=== PATIENT | male | born 1950 | race Caucasian/White ===

== ENCOUNTER 2019-01-20 10:19 | Inpatient (IN) ==
[2019-01-20] MEDS ORDERED: DUONEB (A & A) INH ONE (10:37)
[2019-01-20] MEDS ORDERED: LASIX IV ONE ×2 (10:38→14:03)
--- NOTE | 2019-01-20 10:43 | PROVIDER DOCUMENTATION ---
HPI-Respiratory General - General Chief Complaint: Shortness of Breath Stated Complaint: SOB Time Seen by Provider: 01/20/19 10:30 Source: patient Allergies/Adverse Reactions: Patient Allergies Allergy/AdvReac Type Severity Reaction Status Date / Time No Known Allergies Allergy Verified 01/20/19 10:56 Home Medications: Home Medication List Medication Instructions Recorded Confirmed Last Taken Type Glipizide [Glipizide Xl] 10 mg PO QHS 12/20/17 01/20/19 01/19/19 History ATORVAstatin [Lipitor] 80 mg PO HS tablet 12/27/17 01/20/19 01/19/19 Rx Clopidogrel Bisulfate [Plavix] 75 mg PO QHS 10/03/18 01/20/19 01/19/19 History Insulin Detemir [Levemir] 25 units SQ QAM 10/03/18 01/20/19 01/19/19 History Furosemide [Lasix] 20 mg PO DAILY #90 tab 10/06/18 01/20/19 01/19/19 Rx Apixaban [Eliquis] 5 mg PO BID 12/26/18 01/20/19 01/19/19 History Gabapentin 100 mg PO BID 12/26/18 01/20/19 01/19/19 History Omeprazole 40 mg PO DAILY 12/26/18 01/20/19 01/19/19 History - History of Present Illness-Resp Nature of Presenting Problem: 68 yr old M, with PMHx significant for CAD s/p stent placement in June 2018, DM type 2, hyperlipidemia, presents with a 24 hr hx of worsening SOB, as well as a one week hx of worsening lightheadedness. The pt states that he has been feeling severely lightheaded for the past week, and has had worsening exertional dyspnea. He also reports worsening generalized weakness. He denies chest pain or pressure. He actually initially reported to his PCP's office this morning, but because of his symptoms and O2 sat of 79% on room air, he was transported via EMS to the ED. Onset/Duration: reports: 24 hours ago Timing: reports: still present Context: denies: recent foreign travel Cough Quality/Degree: reports: dry cough Current Respiratory Medication Therapy: Initiated none Similar Symptoms Previously?: No Review of Systems - Adult - REVIEW OF SYSTEMS - ADULT Constitutional: reports: no symptoms reported Eyes: reports: no symptoms reported Ears, Nose, Mouth & Throat: reports: no symptoms reported Cardiovascular: reports: no symptoms reported Respiratory: reports: cough, dyspnea on exertion, shortness of breath Gastrointestinal: reports: no symptoms reported Genitourinary: reports: no symptoms reported Musculoskeletal: reports: no symptoms reported Integumentary: reports: no symptoms reported Neurological: reports: no symptoms reported Psychiatric: reports: no symptoms reported Past History - Adult - PAST MEDICAL HISTORY-ADULT Review of Records: reports: Old Records Reviewed, Nursing Assessment Review Major Childhood Illnesses: reports: denies history Cardiovascular: reports: blood clots, HTN, heart valve problem, hyperlipidemia, [place], other (cardiomegaly) Respiratory: reports: denies history Gastrointestinal: reports: denies history Obstetrical/Gynecological: reports: denies history Genitourinary: reports: denies history Musculoskeletal: reports: denies history Neurological: reports: denies history Endocrine/Immune: reports: Diabetes Other Conditions: reports: denies history - PRIOR SURGERIES/PROCEDURES Surgical/Procedure History: reports: cardiac stent, hernia repair, orthopedic (extremity) (finger amputation), other (blood clot removed) - IMMUNIZATION STATUS Childhood Immunizations: See Nurse Assessment Flu Vaccine: See Nurse Assessment - FAMILY HISTORY Family History: reviewed, not pertinent - SOCIAL HISTORY Smoking: greater than 1 pack/day Physical Exam-General - CONSTITUTIONAL General Appearance: alert, mild distress - EYES Eyes: PERRL/EOMI - HEAD, EARS, NOSE, MOUTH & THROAT HENMT: normocephalic/atraumatic, moist mucous membranes - NECK Neck: full range of motion, supple, other (no jvd noted) - RESPIRATORY Respiratory: chest non-tender, accessory muscle use, crackles, wheezing - CARDIOVASCULAR Cardiovascular: tachycardia - GASTROINTESTINAL (ABDOMEN) Abdominal Exam: normal bowel sounds, non tender, soft - MUSCULOSKELETAL Extremity: pedal edema - SKIN Integumentary: warm/dry - NEUROLOGIC Neurologic: no motor/sensory deficits - PSYCHIATRIC Psych/Mental Status: normal mood/affect, oriented x 3 - HEART Score HEART Score: History: Moderately Suspicious HEART Score: ECG: Normal HEART Score: Age: > or = 65 Years HEART Score: Risk Factors for Atherosclerotic Disease: > or = 3 Risk Factors or History of Atherosclerotic Disease HEART Score: Troponin: < or = Normal Limit Total HEART Score:: 5 Progress - PLAN OF CARE/RESULTS Progress/Plan/Lab Results: Vital Signs - 8 hr 01/20/19 10:25 01/20/19 10:29 01/20/19 10:30 Temperature 98.1 F Pulse Rate 103 H Respiratory Rate 21 Blood Pressure 141/80 141/80 136/65 O2 Sat by Pulse Oximetry 100 01/20/19 10:46 01/20/19 10:51 01/20/19 11:00 Temperature Pulse Rate 100 H Respiratory Rate 18 Blood Pressure O2 Sat by Pulse Oximetry 100 100 94 L 01/20/19 11:01 01/20/19 11:30 01/20/19 12:00 Temperature Pulse Rate Respiratory Rate Blood Pressure 119/71 143/79 O2 Sat by Pulse Oximetry 94 L 100 100 01/20/19 12:30 01/20/19 12:49 01/20/19 12:53 Temperature Pulse Rate 98 H Respiratory Rate Blood Pressure 159/75 159/75 159/75 O2 Sat by Pulse Oximetry 100 92 L 01/20/19 13:00 01/20/19 13:19 01/20/19 13:30 Temperature Pulse Rate 100 H 100 H 106 H Respiratory Rate 22 20 21 Blood Pressure 147/82 147/82 117/83 O2 Sat by Pulse Oximetry 97 93 L 97 01/20/19 13:39 01/20/19 14:00 Temperature Pulse Rate 100 H Respiratory Rate 21 20 Blood Pressure 151/68 130/84 O2 Sat by Pulse Oximetry 100 01/20/19 12:43 Influenza Screen - Final Nasopharyngeal Laboratory Results - last 24 hr 01/20/19 01/20/19 01/20/19 10:58 11:37 11:37 WBC 15.01 H RBC 3.18 L Hgb 6.4 L Hct 23.5 L MCV 73.9 L MCH 20.1 L MCHC 27.2 L RDW Std Deviation 19.0 H Plt Count 478 H MPV 11.4 H Immature Gran % (Auto) 0.3 Neut % (Auto) 83.2 H Lymph % (Auto) 9.9 L [place] % (Auto) 4.8 Eos % (Auto) 0.9 Baso % (Auto) 0.9 H Immature Gran # (Auto) 0.05 H Neut # (Auto) 12.49 H Lymph # (Auto) 1.48 [place] # (Auto) 0.72 H Eos # (Auto) 0.13 Baso # (Auto) 0.14 PT INR PTT (Actin FS) Specimen Type ARTERIAL Sample Site R RADIAL pH 7.45 pCO2 31 L pO2 77 HCO3 23.1 Base Excess -2.3 Oxyhemoglobin 93.3 L ABG O2 Sat (Calculated) 8.0 L ABG O2 Saturation 94.3 L ABG Carboxyhemoglobin 1.10 ABG Methemoglobin 0.0 Norm Test YES A-a O2 Difference 34.0 Total Hemoglobin 6.0 L Lactate 1.10 Blood Gas Modality ROOM AIR FiO2 % 21.0 Sodium Potassium Chloride Carbon Dioxide Anion Gap BUN Creatinine Estimated GFR/1.73 m2 BUN/Creatinine Ratio Glucose Calculated Osmolality Calcium Iron TIBC % Saturation Unsat Iron Binding Ferritin Total Bilirubin AST ALT Alkaline Phosphatase Creatine Kinase Troponin T Fel-N-Jcrwqhidcci Pept 1763 H Total Protein Albumin Globulin Albumin/Globulin Ratio Plasma Lactate Vitamin B12 Blood Type Antibody Screen Crossmatch 01/20/19 01/20/19 01/20/19 11:37 11:37 11:37 WBC RBC Hgb Hct MCV MCH MCHC RDW Std Deviation Plt Count MPV Immature Gran % (Auto) Neut % (Auto) Lymph % (Auto) [place] % (Auto) Eos % (Auto) Baso % (Auto) Immature Gran # (Auto) Neut # (Auto) Lymph # (Auto) [place] # (Auto) Eos # (Auto) Baso # (Auto) PT 14.1 INR 1.07 PTT (Actin FS) 28.6 Specimen Type Sample Site pH pCO2 pO2 HCO3 Base Excess Oxyhemoglobin ABG O2 Sat (Calculated) ABG O2 Saturation ABG Carboxyhemoglobin ABG Methemoglobin Norm Test A-a O2 Difference Total Hemoglobin Lactate Blood Gas Modality FiO2 % Sodium 133 L Potassium 4.5 Chloride 97 L Carbon Dioxide 18 L Anion Gap 18 BUN 12 Creatinine 1.6 H Estimated GFR/1.73 m2 43 BUN/Creatinine Ratio 8 Glucose 277 H Calculated Osmolality 276 Calcium 8.8 Iron TIBC % Saturation Unsat Iron Binding Ferritin Total Bilirubin 0.34 AST 26 ALT 11 Alkaline Phosphatase 159 H Creatine Kinase 162 Troponin T 0.049 Oqj-F-Mzexglbrcav Pept Total Protein 7.3 Albumin 4.2 Globulin 3.1 Albumin/Globulin Ratio 1.4 Plasma Lactate Vitamin B12 Blood Type Antibody Screen Crossmatch 01/20/19 01/20/19 01/20/19 11:37 11:37 12:35 WBC RBC Hgb Hct MCV MCH MCHC RDW Std Deviation Plt Count MPV Immature Gran % (Auto) Neut % (Auto) Lymph % (Auto) [place] % (Auto) Eos % (Auto) Baso % (Auto) Immature Gran # (Auto) Neut # (Auto) Lymph # (Auto) [place] # (Auto) Eos # (Auto) Baso # (Auto) PT INR PTT (Actin FS) Specimen Type Sample Site pH pCO2 pO2 HCO3 Base Excess Oxyhemoglobin ABG O2 Sat (Calculated) ABG O2 Saturation ABG Carboxyhemoglobin ABG Methemoglobin Norm Test A-a O2 Difference Total Hemoglobin Lactate Blood Gas Modality FiO2 % Sodium Potassium Chloride Carbon Dioxide Anion Gap BUN Creatinine Estimated GFR/1.73 m2 BUN/Creatinine Ratio Glucose Calculated Osmolality Calcium Iron TIBC % Saturation Unsat Iron Binding Ferritin 24 L Total Bilirubin AST ALT Alkaline Phosphatase Creatine Kinase Troponin T Fqw-T-Xnhyascptxy Pept Total Protein Albumin Globulin Albumin/Globulin Ratio Plasma Lactate 3.0 H Vitamin B12 860 Blood Type B POSITIVE Antibody Screen NEGATIVE Crossmatch See Detail 01/20/19 13:58 WBC RBC Hgb Hct MCV MCH MCHC RDW Std Deviation Plt Count MPV Immature Gran % (Auto) Neut % (Auto) Lymph % (Auto) [place] % (Auto) Eos % (Auto) Baso % (Auto) Immature Gran # (Auto) Neut # (Auto) Lymph # (Auto) [place] # (Auto) Eos # (Auto) Baso # (Auto) PT INR PTT (Actin FS) Specimen Type Sample Site pH pCO2 pO2 HCO3 Base Excess Oxyhemoglobin ABG O2 Sat (Calculated) ABG O2 Saturation ABG Carboxyhemoglobin ABG Methemoglobin Norm Test A-a O2 Difference Total Hemoglobin Lactate Blood Gas Modality FiO2 % Sodium Potassium Chloride Carbon Dioxide Anion Gap BUN Creatinine Estimated GFR/1.73 m2 BUN/Creatinine Ratio Glucose Calculated Osmolality Calcium Iron 13 L TIBC 456 % Saturation 3 Unsat Iron Binding 443 H Ferritin Total Bilirubin AST ALT Alkaline Phosphatase Creatine Kinase Troponin T Xix-G-Sgduqkqknio Pept Total Protein Albumin Globulin Albumin/Globulin Ratio Plasma Lactate Vitamin B12 Blood Type Antibody Screen Crossmatch Orders Category Date Time Status Admit - [facility] Routine AdmDCTranf 01/20/19 13:56 Active Activity - Up with Assistance ORDERED Care 01/20/19 13:56 Active Apply Mechanical Device [QM] ORDERED Care 01/20/19 14:20 Active Cardiac Monitoring DIRECTED Care 01/20/19 11:56 Completed FSBS/Accucheck Result AC + HS Care 01/20/19 13:56 Active IV Insertion ORDERED Care 01/20/19 11:56 Completed Intake and Output-Strict ORDERED Care 01/20/19 14:20 Active Notify MD of + Sepsis Screen NOW Care 01/20/19 11:56 Completed Notify Physician As Ordered Care 01/20/19 11:56 Active Nursing- Assist w/ IS as order ORDERED Care 01/20/19 14:20 Active Nursing- MD Consult Request ROUTINE Care 01/20/19 13:56 Active Nursing- MD Consult Request ROUTINE Care 01/20/19 14:04 Active Transfuse .Give-Transfuse Care 01/20/19 13:59 Active Vital Signs Order Q 4-HR ASSESS Care 01/20/19 14:20 Completed Z-Document. for Tele Applied ORDERED Care 01/20/19 14:20 Completed MD [Physician/Provider Consults] Routine Cons 01/20/19 14:03 Ordered Physician/Provider Consults Routine Cons 01/20/19 13:56 Ordered Social Service Consult Routine Cons 01/20/19 14:20 Active Clear Liquid Diet Diet 01/20/19 13:56 Active NPO Diet 01/21/19 00:01 Active CHEST-2 VIEWS [RAD] Stat Exams 01/20/19 10:38 Completed ABG [RESP] Routine Lab 01/20/19 10:58 Completed BLOOD CULTURE [BLDCUL] Stat Lab 01/20/19 11:37 Results CBC WITH DIFF [HEME] Q24H Lab 01/21/19 06:00 Ordered CBC WITH DIFF [HEME] Q24H Lab 01/22/19 06:00 Ordered CBC WITH DIFF [HEME] Q24H Lab 01/23/19 06:00 Ordered CBC WITH DIFF [HEME] Q24H Lab 01/24/19 06:00 Ordered CBC WITH DIFF [HEME] Q24H Lab 01/25/19 06:00 Ordered CBC WITH DIFF [HEME] Q24H Lab 01/26/19 06:00 Ordered CBC WITH DIFF [HEME] Q24H Lab 01/27/19 06:00 Ordered CBC WITH ELECTRONIC DIFF [HEME] Stat Lab 01/20/19 11:37 Completed CK PROFILE [SP CHEM] Stat Lab 01/20/19 11:37 Completed COMPREHENSIVE METABOLIC PANEL [CHEM] Q24H Lab 01/21/19 06:00 Ordered COMPREHENSIVE METABOLIC PANEL [CHEM] Q24 Lab 01/22/19 06:00 Ordered COMPREHENSIVE METABOLIC PANEL [CHEM] Q24 Lab 01/23/19 06:00 Ordered COMPREHENSIVE METABOLIC PANEL [CHEM] Q24 Lab 01/24/19 06:00 Ordered COMPREHENSIVE METABOLIC PANEL [CHEM] Q24 Lab 01/25/19 06:00 Ordered COMPREHENSIVE METABOLIC PANEL [CHEM] Q24 Lab 01/26/19 06:00 Ordered COMPREHENSIVE METABOLIC PANEL [CHEM] Q24 Lab 01/27/19 06:00 Ordered COMPREHENSIVE METABOLIC PANEL [CHEM] Stat Lab 01/20/19 11:37 Completed FERRITIN Stat Lab 01/20/19 11:37 Completed FOLATE Stat Lab 01/20/19 13:58 Received Flu Swab [INFLUENZA SCREEN A/B] Stat Lab 01/20/19 12:43 Completed LACTATE, PLASMA [CHEM] Lab 01/20/19 15:00 Ordered LACTATE, PLASMA [CHEM] Lab 01/20/19 18:00 Ordered LACTATE, PLASMA [CHEM] Q3 Lab 01/20/19 11:37 Completed LRPC (RED CELLS) [BBK] Stat Lab 01/20/19 12:35 Results MAGNESIUM [CHEM] Q24 Lab 01/21/19 06:00 Ordered MAGNESIUM [CHEM] Q24 Lab 01/22/19 06:00 Ordered MAGNESIUM [CHEM] Q24 Lab 01/23/19 06:00 Ordered MAGNESIUM [CHEM] Q24 Lab 01/24/19 06:00 Ordered MAGNESIUM [CHEM] Q24 Lab 01/25/19 06:00 Ordered MAGNESIUM [CHEM] Q24 Lab 01/26/19 06:00 Ordered MAGNESIUM [CHEM] Q24 Lab 01/27/19 06:00 Ordered PROTIME WITH INR [COAG] Routine Lab 01/21/19 06:00 Ordered PROTIME WITH INR [COAG] Stat Lab 01/20/19 11:37 Completed PTT [COAG] Routine Lab 01/21/19 06:00 Ordered PTT [COAG] Stat Lab 01/20/19 11:37 Completed TROPONIN T Stat Lab 01/20/19 11:37 Completed TYPE & SCREEN [BBK] Stat Lab 01/20/19 12:35 Results UIBC W TOTAL IRON [CHEM] Stat Lab 01/20/19 13:58 Completed URINALYSIS W/POSS RFLX CULT [URINALYSIS] Stat Lab 01/20/19 11:56 Uncollected VITAMIN B12 Stat Lab 01/20/19 11:37 Completed pro-bnp [PRO B-NATRIURETIC PEPTIDE] Stat Lab 01/20/19 11:37 Completed ATORVAstatin [Lipitor] Med 01/20/19 21:00 Active 80 mg PO HS Acetaminophen [Tylenol] Med 01/20/19 13:56 Active 650 mg PO Q6H PRN PRN Albuterol 2.5MG/Ipratrop 0.5MG [Duoneb (A & A)] Med 01/20/19 10:37 Discontinued 3 ml INH NOW ONE Budesonide [Pulmicort] Med 01/20/19 19:30 Active 0.5 mg INH RTBID CefTRIAXONE [Rocephin] 1 gm Med 01/20/19 12:40 Discontinued 0.9% Sodium Chloride Inj [Ns] 50 ml IV NOW CefTRIAXONE [Rocephin] 1 gm Med 01/21/19 09:00 Active 0.9% Sodium Chloride Inj [Ns] 50 ml IV Q24H Furosemide [Lasix] Med 01/20/19 10:38 Discontinued 20 mg IV NOW ONE Furosemide [Lasix] Med 01/20/19 14:03 Discontinued 20 mg IV NOW ONE Furosemide [Lasix] Med 01/21/19 09:00 Active 40 mg IV DAILY Gabapentin [Neurontin] Med 01/20/19 21:00 Active 100 mg PO BID Insulin Detemir [Levemir] Med 01/21/19 09:00 Active 25 unit SUBQ QAM Insulin Human Regular [Humulin R] Med 01/20/19 16:00 Active See Protocol SUBQ 0700,1100,1600,2100 Ipratropium [place] Neb [Atrovent Neb] Med 01/20/19 15:30 Active 0.5 mg INH RTQ4H Levalbuterol Neb [Xopenex Neb] Med 01/20/19 15:30 Active 1.25 mg INH RTQ4H Ondansetron [Zofran] Med 01/20/19 13:56 Active 4 mg IV Q4H PRN PRN Pantoprazole [Protonix] Med 01/20/19 12:50 Discontinued 40 mg IV NOW ONE Sodium Chloride 0.9% Med 01/20/19 12:50 Discontinued 10 ml INJ NOW ONE Sodium Chloride 0.9% Neb [Ns Neb] Med 01/20/19 14:00 Active 5 ml INH DIRECTED Aerosol Treatments Routine Oth 01/20/19 10:38 Completed Aerosol Treatments Routine Oth 01/20/19 13:56 Active Aerosol Treatments Stat Oth 01/20/19 10:38 Completed Incentive Spirometer Routine Oth 01/20/19 14:20 Active Oxygen Device Stat Ot 01/20/19 11:56 Active Pulse Oximetry Routine Ot 01/20/19 14:20 Active Telemetry [OM.EQ] Routine Oth 01/20/19 14:20 Active EKG [EKG] Routine Ther 01/21/19 08:00 Ordered EKG [EKG] Stat Ther 01/20/19 10:38 Draft Transfer/Admit Order [TRANSFER] Routine Transfer 01/20/19 13:50 Completed Pt has H/H of 6.4/23.4; possibly related to recent GI issues; he very succinctly denies any black or tarry stools or hematemesis/hemoptysis; he was not inte rested in my offer of rectal exam. Spoke with hospitalist [facility] [employer] who will speak to hospitalist for admission. Result Diagrams: 01/20/19 11:37 01/20/19 11:37 - EKG 1 Time of EKG reading by physician:: 11:33 EKG Read and Signed by:: Parth Bhatt EKG Interpretation (*Must complete 3 of following elements*): Abnormal Rate: 103 Rhythm: sinus tachycardia with PVCs [place]: left QRS: poor R wave progression [place] Interval: normal ST Wave: non-specific ST changes Prior EKG Comparison: unchanged from prior Comments: inferior and anteroseptal infarct, age undetermined - XRAY 1 XRAY Study: Chest Impression: See EMR Report XRAY Interpretation: pulmonary edema - CONSULTS/PCP/HOSPITALIST Notification #1 *Consult/PCP/Hospitalist*: Belkys Ricketts Time Discussed: 12:51 Consult Disposition: Admit Departure - Departure Date of Disposition Decision: 01/20/19 Time of Disposition Decision: 15:13 DIAGNOSIS: Anemia, Acute exacerbation of congestive heart failure, SOB (shortness of breath) Disposition: ADMITTED INPATIENT 09 Certified Medical Emergency: Emergent Condition: Fair - Critical Care Note This patient required my direct & personal management of CC.: No Attestation - Physician/ FELI Attestation Patient care was provided by Advanced Practice Provider:: No The physician spent face to face time with patient:: Yes Advanced Practice Provider documentation review:: Supervising physician onsite and consulted in the evaluation and care of this patient. The physician did have a face to face encounter with the patient.
[2019-01-20 11:08] LABS: ALLEN TEST YES; BE -2.3 mmoll (-3.0-3.0); BLOOD TYPE ARTERIAL; HCO3-(ACT) 23.1 mmoll (20.0-26.0); O2HB 93.3 % (95.0-99.0); PCO2(98.6) 31 mmHg (35-45); PO2(98.6) 77 mmHg (60-100); SAMPLE BLOOD; SAO2 94.3 % (95.0-100.0); pH(98.6) 7.45 (7.35-7.45)
[2019-01-20 11:09] LABS: MODALITY ROOM AIR
--- NOTE | 2019-01-20 11:20 | Diag Imaging Result Doc PS360 ---
EXAM: CHEST-2 VIEWS HISTORY: SOB TECHNIQUE: Two views COMPARISON: 10/03/2018 FINDINGS: Increased AP diameter to the chest. Heart is mildly enlarged and there is pulmonary edema. Trace pleural fluid. No consolidation. IMPRESSION: Congestive failure. Electronically signed by Elvis Sweeney 01/20/2019 11:18 AM
--- NOTE | 2019-01-20 11:25 | EKG Report ---
Test Performed on : 01/20/2019 11:33:15 AM Test Reason : SOB Blood Pressure : / mmHG Vent. Rate : 103 BPM Atrial Rate : 103 BPM P-R Int : 154 ms QRS Dur : 082 ms QT Int : 340 ms P-R-T Axes : 003 -38 062 degrees QTc Int : 445 ms Sinus tachycardia. with occasional and consecutive premature ventricular complexes. Left axis deviation Inferior infarct (cited on or before 20-DEC-2017) Anteroseptal infarct (cited on or before 20-DEC-2017) ST & T wave abnormality, consider lateral ischemia Abnormal ECG When compared with ECG of 03-OCT-2018 09:00, Questionable change in initial forces of Inferior leads ST now depressed in Inferior leads Unconfirmed Result
[2019-01-20 11:54] LABS: BASO# 0.14 X1000 (0.0-0.2); BASO% 0.9 % (0.0-0.8); EOS# 0.13 X1000 (0.0-0.7); EOS% 0.9 % (0.0-10.0); HEMATOCRIT 23.5 % (42.0-52.0); HEMOGLOBIN 6.4 g/dL (14.0-18.0); IMM GRAN# 0.05 X1000 (0.0-0.04); IMM GRAN% 0.3 % (0.0-0.5); LYMPH# 1.48 X1000 (1.2-3.4); LYMPH% 9.9 % (20.5-51.1); MCH 20.1 PG (27-31); MCHC 27.2 g/dL (33-37); MCV 73.9 FL (81-99); MONO# 0.72 X1000 (0.11-0.59); MONO% 4.8 % (1.7-9.3); MPV 11.4 FL (7.4-10.4); NEUT# 12.49 X1000 (1.4-6.5); NEUT% 83.2 % (42.2-75.2); PLT 478 X1000 (130-400); RBC 3.18 XMIL (4.7-6.1); WBC 15.01 X1000 (4.8-10.8)
[2019-01-20 12:09] LABS: ALB/GLOB RATIO 1.4; ALBUMIN 4.2 g/dL (3.5-5.0); CALCIUM 8.8 mg/dL (8.8-10.2); CREATININE 1.6 mg/dL (0.7-1.2); POTASSIUM 4.5 mmol/L (3.5-5.1); TOTAL BILIRUBIN 0.34 mg/dL (0.20-1.00); TOTAL PROTEIN 7.3 g/dL (6.3-8.3)
[2019-01-20 12:12] LABS: INR 1.07; PROTIME 14.1 Seconds (11.0-16.0)
[2019-01-20 12:13] LABS: PTT 28.6 Seconds (22.3-41.8)
[2019-01-20] MEDS ORDERED: ROCEPHIN 1 GM in NS 50 ML IV ONE (12:40)
[2019-01-20] MEDS ORDERED: PROTONIX IV ONE (12:50)
[2019-01-20] MEDS ORDERED: SODIUM CHLORIDE 0.9% INJ ONE (12:50)
[2019-01-20] MEDS ORDERED: TYLENOL PO PRN (13:56)
[2019-01-20] MEDS ORDERED: ZOFRAN IV PRN (13:56)
[2019-01-20] MEDS ORDERED: NS NEB INH SCH (14:00)
[2019-01-20] MEDS ORDERED: NICODERM PATCH TD ONE (14:49)
[2019-01-20 14:55] LABS: FERRITIN 24 ng/mL (30-400)
[2019-01-20 15:05] LABS: IRON SATURATION 3 %; TIBC 456 ug/dL; TOTAL IRON 13 ug/dL (53-167); UNBOUND IRON 443 ug/dL (112-346)
[2019-01-20] MEDS: ATROVENT NEB INH SCH ×3 (15:33→23:03)
[2019-01-20] MEDS: XOPENEX NEB INH SCH ×3 (15:33→23:03)
[2019-01-20] MEDS: HUMULIN R SUBQ SCH ×2 (16:38→21:02)
--- NOTE | 2019-01-20 17:26 | HISTORY AND PHYSICAL ---
PRIMARY CARE PROVIDER: MARIFER Cote CHIEF COMPLAINT: Shortness of breath. HISTORY OF PRESENT ILLNESS: Mr. Dayne Garcia is a 68-year-old male with a medical history of COPD, no home oxygen, systolic congestive heart failure with noncompliance on taking his Lasix and which he has been out of it for a week, history of chronic atrial fibrillation, CKD stage 3, hypertension, peptic ulcer disease, GI bleed in the past, who is now here with complaints of shortness of breath. He went to his primary care provider MARIFER Cote, today with complaints of shortness of breath, was found to have O2 saturation in the 70s on room air. He was then brought by EMS, was found to be anemic. Denies any symptoms of GI bleeding. Denies blood in the stool. Denies black tarry stools. Denies nausea or vomiting. It is noted that he was recently treated by Dr. Bal for peptic ulcer disease. He had an EGD performed 10/04/2018, which showed 2 ulcers ranging between 3 and 7 mm in size. They were found in the gastric antrum. He at the time had already stopped bleeding. He was then started on Protonix 40 mg twice a day for 3 months and to avoid NSAIDs. It was also recommended to resume Coumadin on discharge, but I believe he was instead placed on Plavix and Eliquis, and then there was a recommendation for EGD 3 months afterwards. The reason he has been on Eliquis and Plavix is that in June of this year he had a myocardial infarction and had cardiac stent placed. His repeat EGD was performed 01/01/[address] Bal as well, and the results showed a normal esophagus, a hiatal hernia. The stomach was normal. The duodenum was normal so they did multiple biopsies in the stomach at that time. The Protonix was then decreased to once daily. Since that time, at least for the last week, he has noticed increased swelling in the hands. He is not able to sleep flat. He has had more shortness of breath, and on top of that, he stopped his Lasix a week ago or either ran out of it. Now he is here with signs and symptoms of acute on chronic hypoxemic respiratory failure, most likely secondary to acute on chronic systolic congestive heart failure along with COPD, as he is a 3-pack- per-day smoker and has smoked for at least 50+ years. His hemoglobin and hematocrit may be somewhat diluted secondary to the congestive heart failure, but he has a hemoglobin of 6 with recent stomach ulcers, although repeat EGD reveals resolution of the stomach ulcers. There are sites of biopsies, and those biopsy sites could be a source of bleeding possibly, as he is on 2 anticoagulants. The biopsy apparently shows chronic active gastritis with focal superficial erosion. There is occasional superficial fungal elements present, and H pylori is negative. So currently we are going to consult Dr. Bal of Gastroenterology. We will also consult Dr. Jeffries with Cardiology, and we will provide oxygen and nebulizers. We will also treat him with blood transfusion and Lasix. PAST MEDICAL HISTORY: 1. Hypertension. 2. Hyperlipidemia. 3. COPD, no home O2. 4. Arthritis. 5. CAD with ND and cardiac stent in June 2018. 6. Remote history of rheumatic fever at 6 years old. 7. Possible obstructive sleep apnea. 8. CKD, stage 3. 9. Chronic atrial fibrillation. 10. Diabetes mellitus, type 2. 11. History of peptic ulcer disease, most recently in September 2018. 12. Chronic leukocytosis. 13. He is having issues with memory. 14. Medical noncompliance. SURGICAL HISTORY: 1. Umbilical hernia repair. 2. Cardiac stent in June 2018. 3. Left pointer finger surgery. 4. Right arm arterial clot removed. SOCIAL HISTORY: He lives alone. His son lives close. He is a 5-csix-jmd-day smoker for 50+ years. He drinks 2 to 3 beers a week. Denies any illicit drug use. He is retired. Patient admits to drinking 3 or 4 pots of coffee per day. He absolutely drinks no water. He only drinks caffeinated coffee, 3 to 4 pots. FAMILY HISTORY: He denies. ALLERGIES: No known drug allergies. HOME MEDICATIONS: 1. Glipizide 10 mg p.o. nightly. 2. Plavix 75 mg p.o. nightly. 3. Eliquis 5 mg p.o. twice daily. 4. Neurontin 100 mg p.o. twice daily. 5. Levemir 25 units subcutaneous daily. 6. Omeprazole 40 mg p.o. daily. 7. Lasix 20 mg p.o. daily. 8. Lipitor 80 mg p.o. nightly. REVIEW OF SYSTEMS: A 14 point review of systems is complete, and all were negative for those mentioned above HPI. He has had some lightheadedness over the last 2 to 3 weeks. Apparently also he had a fall yesterday around 4 p.m. but fell to the couch on. He has had some shaking as well. Denies fever. Also does not check his blood glucose levels at home. PHYSICAL EXAMINATION: VITAL SIGNS: Temperature 98.6 degrees, heart rate 106, respiratory rate 16, blood pressure 126/77, O2 saturation on 3 L nasal cannula 99%. GENERAL: Mr. Dayne Garcia is a 68-year-old male. He is in no acute distress. He is able answer questions appropriately. HEENT: He has significant facial hair. He is atraumatic, normocephalic. Pupils equal, round, and reactive to light. Extraocular movements intact. Mucous membranes are moist. NECK: Trachea midline. CARDIOVASCULAR: Irregularly irregular, tachycardic rate and rhythm. No rubs, gallops, murmurs. Trace lower extremity edema. +2 dorsalis and radial pulses. Negative for carotid bruits. Mild JVD. PULMONARY: Expiratory wheezes noted anteriorly. No accessory muscle use or work of breathing noted. GASTROINTESTINAL: Soft, nontender, nondistended. Positive bowel sounds x4. EXTREMITIES: Moves all extremities equally. Decreased range of motion. NEUROLOGIC: AAO x3. Follows commands. Sensory is intact. SKIN: Warm, dry, intact. But pale. LABORATORY DATA: White blood cells 15,000, hemoglobin 6, hematocrit 23, platelet count 478,000. INR is 1.07, PTT is 28.6. ABG: PH 7.45, pCO2 of 31, PO2 of 77, bicarbonate 23, saturation 93%, lactate 1.1; this is reported to be on room air. Sodium 133, potassium 4.5, BUN 12, creatinine 1.6, glucose 277, calcium 8.8. Iron is 13, total iron binding capacity is 456, saturation 3, ferritin 24. Bilirubin 0.34, AST 26, ALT 11, CK 162. Troponin 0.049. ProBNP 1763. Albumin is 4.2. Lactate 3.2. Vitamin B12 is 860, folate 29.8. IMAGING: Chest x-ray is congestive heart failure. DIAGNOSTIC STUDIES: EKG is actually showing sinus tachycardia with occasional PVCs, QTc is 445. ASSESSMENT AND PLAN: 1. Likely upper gastrointestinal bleeding with recent peptic ulcer disease. Was treated with Protonix or proton pump inhibitor. He has been followed by Dr. Bal. He had a negative EGD in December, but the pathology sample showed a chronic gastritis. He is currently on Protonix. We will continue with that, but he is showing signs of chronic blood loss, low iron level, low ferritin. Currently we will hold anticoagulants, but he is going to need the Plavix, so we are consulting Cardiology as he most recently had a stent placed June. He is going to be on a Protonix drip. 2. Most likely chronic blood-loss anemia, could be acute blood loss anemia as well. Again, Gastroenterology is consulted. He is going to be getting 1 unit of packed red blood cells. 3. Myocardial infarction with cardiac stent June. Denies any chest pain at this time, but he needs to be on his Plavix. He also has Eliquis ordered. Those are currently being held until further evaluation by Dr. Jeffries and Dr. Bal. 4. Acute on chronic systolic congestive heart failure. Apparently he ran out of Lasix a week ago, and now he is showing signs of pulmonary edema and shortness of breath, so he is going to get IV Lasix. 5. History of atrial fibrillation. Rhythm is currently sinus tachycardia with frequent PVCs. No anticoagulation at this time. 6. Chronic kidney disease, stage 3, currently stable. 7. Chronic leukocytosis. He has had leukocytosis at least for a year and primarily ranges anywhere from 11 to 14 on his white blood cell count, and on top of that, he has also had an elevation in his lactate at 3.0, so he will be continued on Rocephin, but no IV fluids as he has acute heart failure at this time. 8. Chronic obstructive pulmonary disease exacerbation on top of fluid volume overload with acute hypoxemic respiratory failure. He is getting oxygen. He is also on Xopenex and Atrovent nebulizers and budesonide nebulizers. We can consider adding steroids if needed, but he is tolerating nasal cannula. 9. Tobacco abuse. Cessation discussed. He may need to have a nicotine patch. 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 He drinks 3 to 4 pots of caffeinated coffee per day. 11. Deep venous thrombosis prophylaxis. SCDs. 12. Diabetes mellitus, type 2. We will do patterned blood glucoses and sliding scale insulin. Dictated by MARIFER Candelaria for Zia Ricketts MD cc: MARIFER Candelaria MD [facility]
[2019-01-20] MEDS: NS 500 ML IV SCH (17:27)
--- NOTE | 2019-01-20 19:04 | HISTORY AND PHYSICAL ---
ADDENDUM TO HISTORY AND PHYSICAL: I have seen and examined Mr. Garcia today. Mr. Garcia is a 64-year-old gentleman with history of multiple comorbidities, including ischemic cardiomyopathy, drug-eluting stent in the circumflex, left ventricle thrombus, congestive heart failure with ejection fraction of 30% to 35%. Repeat echocardiogram in September of this year shows an ejection fraction of 50% with akinesis of the apical, anteroseptal region, and apex. In any case, he had EGD done 10/04/2018, which showed 2 ulcers ranging from 3 to 7 in the gastric atrium which represent the source of bleeding. A repeat EGD done on 01/01/2019 shows no new complications. Ulcers were completely healed. No evidence of residual ulcers or AVMs. Mr. Garcia came in this time because of difficulty breathing. PHYSICAL EXAMINATION: HIS CURRENT VITALS: Blood pressure is 126/77, pulse of 103, respirations 16, temperature 98.6 degrees. GENERAL: On general exam, Mr. Garcia is a 68-year-old elderly gentleman. He was in bed in mild respiratory distress. HEENT: Mucosa is pink and moist. Anicteric. Acyanotic. NECK: Neck is supple. There is positive JVD. CHEST: Air entry was bilaterally reduced. Diffuse wheezing in posterior lung rainey. There are also crackles posteriorly. CARDIOVASCULAR: Regular rate and rhythm with occasional extrasystolic beats. ABDOMEN: Soft and distended. EXTREMITIES: About 3+ pedal edema. CENTRAL NERVOUS SYSTEM: Patient is awake, alert, and oriented. LABORATORY DATA: Has also been reviewed. Patient has remarkable macrocytic anemia with thrombocytosis, which I think is reactive. Chemistry shows sodium of 133, potassium was normal, bicarbonate is 18, creatinine is 1.3 which seems to be patient's baseline. Iron studies reveal remarkable iron deficiency. ProBNP is 1763 which is elevated. The patient's imaging studies today show some cardiomegaly with pulmonary edema, trace pleural effusions. The patient's O2 saturation went down to about 74 or 72 at some point. ASSESSMENT: 1. Dyspnea on presentation associated with hypoxemia secondary to pulmonary edema. 2. Fluid overload secondary to congestive heart failure. 3. Severe iron deficiency anemia. 4. Microcytic anemia secondary to iron deficiency. Patient will be grouped and crossmatched for 2 units of PRBC. He does not seem to be hemorrhaging at this point, but I suspect he still has some disease in the GI tract. The recent EGD was unremarkable. I think he will need to be scoped from below as well. We will get Gastroenterology to evaluate him. 5. Ischemic heart disease status post stents. 6. Bronchospasm, most likely due to pulmonary edema; however, underlying chronic obstructive pulmonary disease is a high possibility. 7. Tobacco use and abuse. Patient has been counseled. 8. Lactic acidosis, most likely due to increased work of breathing. For now, we are going to group and crossmatch Mr. Garcia for 2 units of PRBCs. We will continue with diuretic therapy and nebulization. We will start him back on some of his home medication except the anticoagulant and the antiplatelets. Please refer to the details of the H P which has been dictated by the COVER MACHINE OPERATOR in the chart. cc: Zia Ricketts MD [facility]
[2019-01-20] MEDS: PULMICORT INH SCH (20:04)
[2019-01-20] MEDS: NEURONTIN PO SCH (20:05)
[2019-01-20] MEDS: LIPITOR PO SCH (20:05)
[2019-01-21] MEDS: ATROVENT NEB INH SCH ×5 (03:53→20:14)
[2019-01-21] MEDS: XOPENEX NEB INH SCH ×5 (03:53→20:14)
[2019-01-21 05:53] LABS: INR 1.18; PROTIME 15.1 Seconds (11.0-16.0)
[2019-01-21 05:54] LABS: PTT 29.4 Seconds (22.3-41.8)
[2019-01-21 06:10] LABS: ALB/GLOB RATIO 1.3; ALBUMIN 3.6 g/dL (3.5-5.0); CALCIUM 8.5 mg/dL (8.8-10.2); CREATININE 1.7 mg/dL (0.7-1.2); MAGNESIUM 1.7 mg/dL (1.5-2.7); POTASSIUM 3.7 mmol/L (3.5-5.1); TOTAL BILIRUBIN 0.46 mg/dL (0.20-1.00); TOTAL PROTEIN 6.4 g/dL (6.3-8.3)
[2019-01-21 06:11] LABS: BASO% 0.8 % (0.0-0.8); EOS# 0.21 X1000 (0.0-0.7); EOS% 1.7 % (0.0-10.0); HEMATOCRIT 22.3 % (42.0-52.0); HEMOGLOBIN 6.3 g/dL (14.0-18.0); IMM GRAN# 0.02 X1000 (0.0-0.04); IMM GRAN% 0.2 % (0.0-0.5); LYMPH# 1.57 X1000 (1.2-3.4); LYMPH% 12.6 % (20.5-51.1); MCH 21.2 PG (27-31); MCHC 28.3 g/dL (33-37); MCV 75.1 FL (81-99); MONO% 8.8 % (1.7-9.3); MPV 12.3 FL (7.4-10.4); NEUT# 9.49 X1000 (1.4-6.5); NEUT% 75.9 % (42.2-75.2); PLT 411 X1000 (130-400); RBC 2.97 XMIL (4.7-6.1); RDW 19.4 % (11.5-14.5); WBC 12.49 X1000 (4.8-10.8)
[2019-01-21] MEDS: HUMULIN R SUBQ SCH ×4 (06:37→20:42)
--- NOTE | 2019-01-21 07:13 | EKG Report ---
Test Performed on : 01/21/2019 06:49:50 AM Test Reason : chest pain Blood Pressure : / mmHG Vent. Rate : 113 BPM Atrial Rate : 113 BPM P-R Int : 000 ms QRS Dur : 094 ms QT Int : 342 ms P-R-T Axes : 000 -44 103 degrees QTc Int : 469 ms Atrial fibrillation. with rapid ventricular response. Left axis deviation Anterior infarct (cited on or before 20-DEC-2017) T wave abnormality, consider lateral ischemia Abnormal ECG When compared with ECG of 20-JAN-2019 11:33, (Unconfirmed) Atrial fibrillation. has replaced Sinus rhythm. Non-specific change in ST segment in Lateral leads Unconfirmed Result
[2019-01-21] MEDS: PULMICORT INH SCH ×2 (08:01→20:14)
[2019-01-21] MEDS: LASIX IV SCH (08:23)
[2019-01-21] MEDS: NEURONTIN PO SCH ×2 (08:23→20:41)
[2019-01-21] MEDS: ROCEPHIN 1 GM in NS 50 ML IV SCH (08:24)
[2019-01-21] MEDS ORDERED: NS 500 ML IV ONE (08:32)
[2019-01-21 08:47] LABS: URINE SOURCE CLEAN CATCH
[2019-01-21 08:49] LABS: BILIRUBIN URINE NEGATIVE (NEGATIVE); BLOOD URINE NEGATIVE (NEGATIVE); COLOR YELLOW; GLUCOSE URINE 70 mg/dL (NEGATIVE); KETONE URINE NEGATIVE (NEGATIVE); LEUKOCYTES URINE NEGATIVE (NEGATIVE); NITRITE URINE NEGATIVE (NEGATIVE); PROTEIN URINE 100 mg/dL (NEGATIVE); SP GRAVITY URINE 1.013; TURBIDITY URINE CLEAR (CLEAR); UR EPITHELIAL CELLS <10 /HPF (<10); URINE BACTERIA NEGATIVE /HPF; URINE RBC <10 /HPF (<10); URINE WBC <10 /HPF (<10); UROBILINOGEN URINE NORMAL (NORMAL)
[2019-01-21] MEDS: LEVEMIR SUBQ SCH (09:18)
[2019-01-21] MEDS ORDERED: MAGNESIUM SULFATE 2 GM/S.W.I. 2 GM/50 ML IVPB IV ONE (15:05)
--- NOTE | 2019-01-21 15:41 | PROGRESS NOTE ---
DATE: 01/21/2019 SUBJECTIVE: This morning Mr. Garcia refers to be doing fairly okay. No new complaints. Breathing is improving. He said he has been seen by GI. He has just started on the GoLYTELY therapy for bowel cleansing for a colonoscopy tomorrow. OBJECTIVE: Current vitals, blood pressure is 140/81, pulse of 110, respirations 25, temperature 98.7 degrees, and patient is saturating 95% on 2 L.General: Mr. Garcia is a 68-year-old gentleman. He was in bed in no distress. Mucosa is pink and moist. Chest: Air entry is bilaterally reduced. There is diffuse end expiratory wheezing bilaterally. Cardiovascular: Regular rate and rhythm. Abdomen: Soft. Distended but nontender. Extremities: 1+ pedal edema. CANTEEN OPERATOR: Patient is awake, alert, and oriented. LABORATORY DATA: Data has been reviewed. Hemoglobin this morning was 6.3. Rest of CBC was normal. Chemistry showed creatinine was 1.7 which seems to be patient's baseline. The patient's I's and O's, urine output was 2575 with a negative balance of about 3995. ASSESSMENT: 1. Acute hypoxemia on presentation secondary to pulmonary edema. 2. Fluid overload secondary to congestive heart failure with reduced ejection fraction. 3. Microcytic anemia secondary to severe iron deficiency. 4. Suspected chronic GI blood loss. 5. Ischemic heart disease status post stent in the past. 6. Acute bronchospasm, most likely due to pulmonary edema with underlying COPD. 7. Tobacco use and abuse prior to hospitalization. 8. Lactic acidosis, resolved. 9. Undiagnosed COPD. Ct chest previously suggested upper lobes emphysema. Patient has been advised to follow up with Pulmonary. PLAN: So in general Mr. Garcia is doing well. His hemoglobin actually dropped instead of improving after the unit of blood yesterday so we are giving him 2 units today. We are going to continue with the nebulization, Lasix therapy, and management for the other comorbidities. He is pending EGD and colonoscopy tomorrow. cc: Zia Ricketts [facility]
[2019-01-21] MEDS ORDERED: GOLYTELY PO ONE (16:00)
[2019-01-21] MEDS: NS 500 ML IV SCH (16:00)
--- NOTE | 2019-01-21 16:17 | CARDIOLOGY CONSULTATION ---
DATE: 01/21/2019 CHIEF COMPLAINT ON PRESENTATION: Shortness of breath. HISTORY OF PRESENT ILLNESS: Mr. Garcia is a 68-year-old white male with a history of COPD, heart failure, and coronary disease with previous PCI who presented with complaints of shortness of breath that have been going on for several days. He had dealt with a GI bleed in September of 2018, and reports shortness of breath with ambulation across the room. He denies any bleeding episodes either being hematemesis, melena or bloody stool. His presenting hematocrit was 23.5. He subsequently is admitted. He denies any overt chest pain. He denies any swelling. He has been compliant with his medications at home including Plavix as well as Eliquis. PAST MEDICAL HISTORY: 1. Significant for coronary disease. Most recently, he had a cardiac catheterization in June of 2018. This demonstrated no left main disease. His LAD had a mid 100% lesion. Diagonal appeared to be normal. Circumflex had a 60 to 70 percent mid lesion that was treated with a PCI to RCA, and had a 20% intraluminal stenosis. Remainder of the vessel appeared free of significant disease. There is faint [id number] collaterals filling a very thread-like apical LAD. 2. History of LV thrombus. Recently evaluated in September of 2018, and appeared to have resolved. 3. History of right brachial artery embolus at the time of LV thrombus diagnosis. 4. COPD with continued high tobacco intake. 5. Pericardial effusion. 6. Hypertension. 7. Hyperlipidemia. 8. Diabetes. 9. Chronic kidney disease. 10. Bilateral carotid artery disease. 11. GI bleed as identified in September of 2018. SOCIAL HISTORY: He smoked anywhere from 2 to 3 packs a day for around 50 years. FAMILY HISTORY: Significant for hypertension. REVIEW OF SYSTEMS: A 10 system review of systems is negative except for those mentioned in HPI. PHYSICAL EXAMINATION: Vital Signs: He is febrile. His heart rates have been in the low 100s to 110's. His most recent blood pressure is 126/70. General: He is in no acute distress. HEENT: Oropharynx is moist. Poor dentition. Eye examination shows pink conjunctivae. White sclerae. Neck: Examination shows no obvious thyromegaly or thyroid tenderness Cardiovascular: He sounds to be in a regular rate and rhythm. He has no obvious murmurs. He has no S3. He has no lower extremity edema. Chest: Exam sounds relatively clear. He has no increased work of breathing. Abdomen: Soft, nontender, and nondistended. He has no obvious organomegaly. Skin: Warm and dry throughout without any rashes. Neurological: Moving all extremities well. PERTINENT DATA: His EKG shows sinus rhythm. The PVC is identified. He has nonspecific ST-T changes that was on an EKG from yesterday at 11:30. His subsequent EKG this morning at 6:49 shows sinus rhythm, some poor R-wave progression suggestive of possibly previous old anterior infarct. Otherwise, nonspecific ST-T changes. His chest x-ray demonstrated evidence for pulmonary edema. His lab data shows a white count of 12.5, hematocrit 22, and platelet count 411,000. His MCV is 75. Sodium is 136, potassium 3.7, BUN 12, creatinine is 1.7. Mag level is 1.7. Albumin is 3.6. ASSESSMENT: Mr. Garcia is a 68-year-old gentleman who presented with shortness of breath, and has been found to be profoundly anemic. PLAN: At this point. His anemia is likely multifactorial likely due to blood loss and possibly as a component related to chronic kidney disease, as well as iron deficiency related to blood loss. It would be okay at this point holding his aspirin and Plavix. He has had Plavix for 6 months post PCI. He has a history of LV thrombus, and at this point considering his bleeding issues we can stopped the Eliquis. Presently, I do not have any acute recommendations. I do not think he needs at this point an ischemia evaluation as considering his extent of lung disease and anemia, he has clear reasons to be as short of breath as he is. I would recommend resumption of his medications in the form of blood thinners when possible from a GI standpoint. cc: Destin Escobar MD
--- NOTE | 2019-01-21 19:06 | GASTROENTEROLOGY CONSULTATION ---
DATE: 01/21/2019 REASON FOR CONSULT: GI bleed. HISTORY OF PRESENT ILLNESS: Mr. Garcia is a 68-year-old male with past history of COPD, congestive heart failure, chronic atrial fibrillation, chronic kidney disease stage 3, hypertension, peptic ulcer disease and GI bleeds in the past. Patient is on 2 L NC. He complained of shortness of breath, dizziness, lightheadedness, and had passed out. He denied any nausea or vomiting. He had EGD done on 10/04/2018, which showed that he had 2 ulcers, and it was in the gastric antrum. He also had an EGD on 01/01 that showed normal esophagus, hiatal hernia noted, stomach normal, duodenum normal, biopsy revealed chronic gastritis, negative H-Pylori, and superficial fungal elements present. The patient is currently is on Plavix and Eliquis. PAST MEDICAL HISTORY: 1. Hypertension. 2. Hyperlipidemia. 3. COPD. 4. Arthritis. 5. CAD, status post cardiac stents. 6. CKD. 7. Chronic atrial fibrillation. 8. Diabetes. 9. Peptic ulcer disease. SURGICAL HISTORY: 1. Umbilical hernia repair. 2. Cardiac stents. 3. Left 2nd finger amputated. 4. Right arm arterial clot removed. SOCIAL HISTORY: He is alone. He lives with his son. He smokes 3 packs of cigarettes per day. He has 1 to 2 packs of beer, which last for 2 months. FAMILY HISTORY: No significant GI malignancies. ALLERGIES: No known drug allergies. HOME MEDICATIONS: 1. Glipizide 10 mg at bedtime. 2. Lipitor 80 mg at bedtime. 3. Levemir 24 units at morning. 4. Plavix 75 mg bedtime. 5. Lasix 20 mg daily. 6. Neurontin 100 mg twice a day. 7. Eliquis 5 mg twice a day. 8. Omeprazole 40 mg daily. REVIEW OF SYSTEMS: As per HPI. Otherwise, 12 point review of systems is negative. PHYSICAL EXAMINATION: Vital Signs: Temperature 97.9 degrees, pulse 123, respirations 26, blood pressure 146/80, oxygen saturation 99% on 2 L nasal cannula. The patient's weight is 225 pounds. BMI is 30.6 kg/m2. General: He is alert and oriented x3, a good historian, and in no acute distress. HEENT: Pale conjunctivae. No icterus. PERRL. Neck: Supple. Lungs: Wheezing heard in the upper lobes. Cardiovascular: The patient is tachycardic. Abdomen: Obese, distended, generalized tenderness. Active bowel sounds heard in all 4 quadrants. Extremities: No clubbing, no cyanosis, no edema. Pedal pulses 2+ present bilaterally. Neurological: Alert oriented x3. Nonfocal. Cranial nerves 2 through 12 grossly intact. LABS: WBC is 12.49, RBC 2.97, hemoglobin 6.3, hematocrit 22.3, platelet count 411,000. Sodium 136, potassium 3.7, chloride 100, carbon dioxide 25, anion gap 11, BUN 12, creatinine 1.7. Urinalysis showed 100 of protein and 70 of glucose. Chest x-ray showed congestive heart failure. IMPRESSION: 1. Upper gastrointestinal bleed. 2. Congestive heart failure. 3. History of atrial fibrillation. 4. Chronic kidney disease. 5. Chronic obstructive pulmonary disease. 6. Tobacco abuse. PLAN: We plan to do an EGD and colonoscopy tomorrow to rule out his GI bleed. The patient is currently on normal saline at 21 mL/h. He is on antibiotic Rocephin. Patient's H & H is 6.3 and 22.3, he has received 2 units of blood yesterday and will receive 1 unit today. We will continue to monitor his CBC, BMP and follow the plan of care per PCP. Further plan of care will be discussed based on the EGD and colonoscopy findings. This plan was discussed with Dr. Bal. Thank you for your consult. Please call us for any further questions or concerns. Dictated by MARIFER Patel for Daniel Bal MD Physician Attestation I have seen and examined the patient. I have discussed and reviewed the the note by Sabrina CAICEDO and agree with findings and plan as documented. In brief, Mr. Dayne Adhikari is a 68 year old man with MMP as described above who presents with CHF exacerbation and symptomatic anemia in setting of running out of diuretics and occult blood loss. He has history of gastric ulcer and SB AVM, which was not seen on follow-up EGD recently. No prior EGD. He denies melena and rectal bleeding. His CHF is improved and he is on RA. Will plan for diagnostic EGD and colonoscopy tomorrow. Continue PPI and trend H/H daily. Transfuse prn for goal hgb 7-8. MTDD
[2019-01-21] MEDS: LIPITOR PO SCH (20:41)
[2019-01-22] MEDS: ATROVENT NEB INH SCH ×7 (00:12→23:00)
[2019-01-22] MEDS: XOPENEX NEB INH SCH ×7 (00:13→23:00)
[2019-01-22] MEDS: HUMULIN R SUBQ SCH ×4 (06:09→21:13)
[2019-01-22 06:37] LABS: BASO% 0.9 % (0.0-0.8); EOS# 0.23 X1000 (0.0-0.7); EOS% 2.1 % (0.0-10.0); HEMATOCRIT 26.7 % (42.0-52.0); HEMOGLOBIN 7.9 g/dL (14.0-18.0); IMM GRAN# 0.04 X1000 (0.0-0.04); IMM GRAN% 0.4 % (0.0-0.5); LYMPH# 1.38 X1000 (1.2-3.4); LYMPH% 12.7 % (20.5-51.1); MCH 22.3 PG (27-31); MCHC 29.6 g/dL (33-37); MCV 75.4 FL (81-99); MONO# 1.16 X1000 (0.11-0.59); MONO% 10.7 % (1.7-9.3); MPV 11.6 FL (7.4-10.4); NEUT# 7.92 X1000 (1.4-6.5); NEUT% 73.2 % (42.2-75.2); PLT 391 X1000 (130-400); RBC 3.54 XMIL (4.7-6.1); RDW 18.8 % (11.5-14.5); WBC 10.83 X1000 (4.8-10.8)
[2019-01-22 06:49] LABS: ALB/GLOB RATIO 1.1; ALBUMIN 3.4 g/dL (3.5-5.0); CALCIUM 8.8 mg/dL (8.8-10.2); CREATININE 1.6 mg/dL (0.7-1.2); MAGNESIUM 1.9 mg/dL (1.5-2.7); POTASSIUM 3.6 mmol/L (3.5-5.1); TOTAL BILIRUBIN 0.56 mg/dL (0.20-1.00); TOTAL PROTEIN 6.5 g/dL (6.3-8.3)
[2019-01-22] MEDS: PULMICORT INH SCH ×2 (07:53→19:28)
[2019-01-22] MEDS ORDERED: FENTANYL ONE (08:58)
[2019-01-22] MEDS ORDERED: DIPRIVAN 1% ONE (08:58)
[2019-01-22] MEDS ORDERED: XYLOCAINE-MPF 2% ONE (08:59)
[2019-01-22] MEDS ORDERED: KETAMINE ONE (09:00)
[2019-01-22] MEDS ORDERED: NEO-SYNEPHRINE ONE (09:23)
[2019-01-22] MEDS ORDERED: SODIUM CHLORIDE 0.9% 10 ML ONE (09:23)
--- NOTE | 2019-01-22 09:34 | ENDOSCOPY OPERATIVE NOTE ---
[facility] ENDOSCOPY OPERATIVE NOTE , PATIENT: Dayne Garcia ADMISSION DATE: 01/22/2019 [facility]#: [id number] [facility] 1950 [id number] EGD PROCEDURE REPORT PROCEDURE DATE: 01/22/2019 SURGEON: Daniel Bal MD STATUS: inpatient BALE BREAKER OPERATOR: PREOPERATIVE DIAGNOSIS: The patient is a 68 yr old male here for an EGD due to iron deficiency anemi a and history of AVMs and PUD, last EGD 01/01/2019 was negative. PROCEDURE PERFORMED: EGD, diagnostic MEDICATIONS: Per Anesthesia TOPICAL ANESTHETIC: none CONSENT: The patient understands the risks and benefits of the procedure and understands that these r isks include, but are not limited to: sedation, allergic reaction, infection, perforation and/or bleeding. Alternative means of evaluation and treatment include, among others: physical exam, x-rays, and/or surgical intervention. The patient elects to proceed with this endoscopic procedure. HISORY AND PHYSICAL: 01/22/2019 DESCRIPTION OF PROCEDURE: During intra-op preparation period all mechanical and medical equipment was checked for proper function. Hand hygiene and appropriate measures for infection prevention was taken. After the risks, benefits and alternatives of the procedure were thoroughly explained, Informed consent was verified, confirmed and timeout was successfully executed by the treatment team. The patient was anesthetized with topical anesthesia and the [id number]-p48 ([id number]) endoscope was introduced through the mouth and advanced to the second portion of the duoden um. Retroflexion was performed in the stomach and revealed no abnormalities. The gastroscope was then slowly withdraw n and removed. ESOPHAGUS: The mucosa of the esophagus appeared normal. STOMACH: A small non-bleeding angioectasias were found in the gastric body. Cautery was applied to t he site(s). DUODENUM: Three small non-bleeding angioectasia was found in the 2nd part of the duodenum. Cautery w as applied to the site(s). SPECIMENS REMOVED: No ADVERSE EVENTS: There were no complications. POSTOPERATIVE DIAGNOSIS: 1. The mucosa of the esophagus appeared normal 2. Non-bleeding angioectasia in the gastric body; cautery was applied to the site(s) 3. Three non-bleeding angioectasias in the 2nd part of the duodenum; cautery was applied to the site (s) RECOMMENDATIONS: Continue to colonoscopy procedure REPEAT EXAM: Daniel Bal MD eSigned: Daniel Bal MD 01/22/2019 9:34 AM cc: PATIENT NAME: Dayne Garcia MR#: [id number]
--- NOTE | 2019-01-22 09:41 | ENDOSCOPY OPERATIVE NOTE ---
[facility] ENDOSCOPY OPERATIVE NOTE , PATIENT: Dayne Garcia ADM DATE: 01/22/2019 MR #: [id number] : 1950 COLONOSCOPY PROCEDURE REPORT PROCEDURE DATE: 01/22/2019 SURGEON: Daniel Bal MD STATUS: inpatient DENTAL MECHANIC: PREOPERATIVE DIAGNOSIS: The patient is a 68 yr old male here for a colonoscopy due to iron deficienc y anemia. PROCEDURE PERFORMED: Colonoscopy, diagnostic MEDICATIONS: Per Anesthesia PREP TYPE: GoLytely
[2019-01-22] MEDS: SOLU-MEDROL IV SCH ×2 (10:16→21:07)
[2019-01-22] MEDS: NEURONTIN PO SCH ×2 (10:16→21:07)
[2019-01-22] MEDS: ROCEPHIN 1 GM in NS 50 ML IV SCH (10:16)
[2019-01-22] MEDS: LASIX IV SCH (10:16)
[2019-01-22] MEDS: LEVEMIR SUBQ SCH (10:17)
[2019-01-22] MEDS: PROTONIX PO SCH ×2 (10:17→21:11)
[2019-01-22] MEDS ORDERED: NORCO-5 PO PRN (11:22)
--- NOTE | 2019-01-22 12:13 | PROGRESS NOTE ---
DATE: 01/22/2019 SUBJECTIVE: This morning, Mr. Garcia refers to be doing well. He just finished his EGD and colonoscopy. Report has been reviewed. OBJECTIVE: Current Vital Signs: Blood pressure is 131/66, pulse of 114, respirations are 22, temperature is 98.1 degrees, the patient is saturating 94%. General Examination: Mr. Garcia is a 68-year-old, gentleman. He is in bed. No distress. HEENT: Mucosa is pink and moist. Anicteric. Acyanotic. Neck: Supple. Mild JVD. Chest: Air entry is bilaterally reduced. Some distant expiratory wheezing. Cardiovascular: Regular rate and rhythm. No murmurs. GI: Abdomen is soft, nontender. Bowel sounds present. Extremities: No pedal edema. RECHARGER: The patient is awake, alert, and oriented. Laboratory Data: WBC is 10.83, hemoglobin is 7.9, platelet count of 391,000. Chemistry is also reviewed. Creatinine is 1.6. So far, blood cultures have been negative. Influenza screening was also negative. ASSESSMENT: 1. Acute hypoxemic respiratory failure on presentation, improved. 2. Fluid overload secondary to congestive heart failure with preserved ejection fraction. 3. Severe microcytic anemia due to iron deficiency. 4. Chronic gastrointestinal bleed, presumably due to arteriovenous malformations. Patient is status post esophagogastroduodenoscopy and colonoscopy. 5. Ischemic heart disease, status post stents in the past. The patient is being followed up by Dr. Escobar. 6. Acute bronchospasm secondary to chronic obstructive pulmonary disease exacerbation and pulmonary edema, improving. 7. Tobacco use and abuse prior to hospitalization. 8. Undiagnosed chronic obstructive pulmonary disease. Patient's previous CT scan did mention emphysema, emphysematous changes in the upper lobes. He has more than a 50 pack year history. 9. Chronic kidney disease stage 3B noted. Hemoglobin and hematocrit are stable. PLAN: In general, I think Mr. Garcia is fairly stable now. All his congestive symptoms have significantly improved. No more pedal edema. He is status post 3 PRBC transfusion. Hemoglobin and hematocrit is now 7.9. EGD reveals some AVMs, which were cauterized. The colonoscopy revealed numerous polyps. We are going to observe him today. His diet has been advanced to diabetic. PPI has been switched to p.o. We are going to continue with the nebulization, steroids, and antimicrobial for the COPD. We will follow up with final recommendations from cardiology and GI. I think if Mr. Garcia's hemoglobin and hematocrit remain stable, and no obvious signs of ongoing GI bleed, we can potentially discharge him tomorrow. cc: Zia Ricketts MD
[2019-01-22] MEDS: HUMALOG SUBQ SCH (16:56)
[2019-01-22] MEDS: FERROUS SULFATE PO SCH (21:07)
[2019-01-22] MEDS: LIPITOR PO SCH (21:07)
[2019-01-22] MEDS: PERICOLACE PO SCH (21:07)
--- NOTE | 2019-01-22 21:28 | CARDIOLOGY PROGRESS NOTE ---
DATE: 01/22/2019 SUBJECTIVE: Mr. Garcia underwent his EGD and colonoscopy today. He reports no bleeding issues. No pain issues. His breathing has improved with transfusion. OBJECTIVE: He is afebrile. His heart rates are in the low 100s to 110s. His blood pressure is 131/66. Generally he is in no acute distress. Cardiovascularly, he sounds to be in a regular rate and rhythm. He has no obvious murmurs. He has no S3. He has no lower extremity edema. His chest exam is clear bilaterally. He has no increased work of breathing. PERTINENT DATA: White count is 10.8, hematocrit 26, platelet count 391,000. His sodium is 138, potassium 3.6, BUN 11, creatinine is 1.6. ASSESSMENT: Mr. Garcia is a 68-year-old gentleman, who presented with bleeding issues. He has a history of PCI performed in June 2018, as well as history of LV thrombus. PLAN: We will continue to hold the Plavix and Eliquis at this point. His hematocrit appears improved. At this point, I do not have any acute cardiovascular recommendations. cc: Destin Escobar MD
[2019-01-23] MEDS: XOPENEX NEB INH SCH ×3 (03:16→11:30)
[2019-01-23] MEDS: ATROVENT NEB INH SCH ×3 (03:16→11:30)
[2019-01-23 06:14] LABS: HEMATOCRIT 26.9 % (42.0-52.0); HEMOGLOBIN 7.8 g/dL (14.0-18.0); IMM GRAN# 0.06 X1000 (0.0-0.04); IMM GRAN% 0.5 % (0.0-0.5); LYMPH# 0.53 X1000 (1.2-3.4); LYMPH% 4.6 % (20.5-51.1); MCH 22.2 PG (27-31); MCV 76.4 FL (81-99); MONO# 0.26 X1000 (0.11-0.59); MONO% 2.3 % (1.7-9.3); MPV 12.1 FL (7.4-10.4); NEUT% 92.6 % (42.2-75.2); PLT 364 X1000 (130-400); RBC 3.52 XMIL (4.7-6.1); RDW 19.8 % (11.5-14.5); WBC 11.55 X1000 (4.8-10.8)
[2019-01-23] MEDS: HUMULIN R SUBQ SCH ×2 (06:33→12:07)
[2019-01-23 06:38] LABS: LYMPHS 4 % (21-51); SEGS 94 % (42-75)
[2019-01-23 07:27] LABS: ALB/GLOB RATIO 1.3; ALBUMIN 3.5 g/dL (3.5-5.0); CALCIUM 8.5 mg/dL (8.8-10.2); CREATININE 1.6 mg/dL (0.7-1.2); MAGNESIUM 2.1 mg/dL (1.5-2.7); TOTAL BILIRUBIN 0.28 mg/dL (0.20-1.00); TOTAL PROTEIN 6.3 g/dL (6.3-8.3)
[2019-01-23 07:28] LABS: POTASSIUM 4.6 mmol/L (3.5-5.1)
--- NOTE | 2019-01-23 07:30 | Diag Imaging Result Doc PS360 ---
EXAM: CHEST-PORTABLE INDICATION: dyspnea TECHNIQUE: One view COMPARISON: 01/20/2019 FINDINGS: Pulmonary venous congestion and interstitial edema is again noted. It may have worsened slightly during the interval, especially the right lower lung zone. This may be due to slight differences in technique. There is no discrete pleural fluid collection or pneumothorax. Cardiac silhouette is stable. IMPRESSION: Interval slight worsening as described. Electronically signed by Ernesto Price 01/23/2019 7:28 AM
[2019-01-23] MEDS: PULMICORT INH SCH (08:05)
[2019-01-23] MEDS ORDERED: LASIX PO ONE ×2 (08:21→08:30)
[2019-01-23 08:38] VITALS: BP 123/58
[2019-01-23] MEDS ORDERED: CENTRUM SILVER PO SCH (09:00)
[2019-01-23] MEDS ORDERED: LEVEMIR SUBQ SCH (09:00)
[2019-01-23] MEDS: ROCEPHIN 1 GM in NS 50 ML IV SCH (09:02)
[2019-01-23] MEDS: SOLU-MEDROL IV SCH (09:04)
[2019-01-23] MEDS: NEURONTIN PO SCH (09:05)
[2019-01-23] MEDS: FERROUS SULFATE PO SCH (09:05)
[2019-01-23] MEDS: PROTONIX PO SCH (09:05)
[2019-01-23] MEDS: PERICOLACE PO SCH (09:05)
[2019-01-23] MEDS: HUMALOG SUBQ SCH ×2 (09:06→12:08)
--- NOTE | 2019-01-23 11:09 | CARDIOLOGY PROGRESS NOTE ---
DATE: 01/23/2019 SUBJECTIVE: Mr. Garcia had an episode of shortness of breath that occurred last night. He is feeling better this morning. PHYSICAL EXAMINATION: Vital Signs: He is afebrile. Heart rates are in the 90s to low 100s. His most recent blood pressure is 123/58. General: He is in no acute distress. Cardiovascular: He sounds to be in a regular rate and rhythm. He has no obvious murmurs. He has no S3. Chest: Clear bilaterally with the exception of very mild basilar infiltrates. Extremities: He has no lower extremity edema. Skin: Warm and dry throughout. PERTINENT DATA: Sodium 134, potassium 4.6, BUN is 19, creatinine is 1.6. ASSESSMENT: Mr. Garcia is a 68-year-old gentleman who presented with severe anemia, likely secondary to gastrointestinal bleed. PLAN: At this point, he is getting a significant dose of oral Lasix this morning per the primary team, which I agree with. He is on 20 of Lasix at home. I would probably bump that up to 40 mg at the time of discharge. From my standpoint, he can be discharged when stable from a GI standpoint. I would recommend resumption of the Plavix and apixaban when able to from a GI standpoint. He is on Protonix b.i.d. at home, which I would agree with, as opposed to using omeprazole considering the potential interaction with the Plavix. At this point, we will sign off. Please contact us if we can be of further assistance. cc: Destin Escobar MD
--- NOTE | 2019-01-23 16:00 | GASTROENTEROLOGY PROGRESS NOTE ---
DATE: 01/23/2019 SUBJECTIVE: Mr. Garcia 68 year old male sitting in the bed. He has denied any nausea, vomiting. He said he did not have a bowel movement today, but he did have it for the last two days due to colon prep. OBJECTIVE: Vital Signs: Temperature is 97.9, pulse is 109, respirations 17, blood pressure 123/58, oxygen saturation 98%. He is on 2 L nasal cannula. The patient's weight is 224 pounds. BMI is 30.5 kg/m2. General: He is alert, oriented x3, and in no acute distress. HEENT: Pale conjunctivae, no icterus. PERRL. Neck: Supple. Lungs: Clear to auscultation in the anterior rainey. Cardiovascular: The patient is tachycardic. Abdomen: Obese, distended, nontender. Active bowel sounds heard in all 4 quadrants. Extremities: Generalized edema in the lower extremities. No clubbing. No cyanosis. Pedal pulses 2+ present bilaterally. Neurologic: He is alert, oriented x3. IMAGING: Chest x-ray showed interval slight worsening. LABORATORY DATA: WBC is 11.55, RBCs 3.52, hemoglobin 7.8, hematocrit 26.9, platelet count is 364,000. Sodium 134, potassium 4.6, chloride 97, carbon dioxide 22, anion gap 15. BUN 19, creatinine 1.6, glucose 394, calcium 8.5, magnesium 2.1. Total bilirubin 0.24, AST 13, ALT 9, alkaline phos 130. IMPRESSION AND PLAN: 1. Upper gastrointestinal bleed. 2. Gastric and Duodenal AVM s/p cautery 3. Anemia 4. Chronic kidney disease. 5. Chronic obstructive pulmonary disease. 6. Tobacco abuse. 7. Congestive heart failure 8. History of atrial fibrillation. 9. Multiple colon polyps noted on colonoscopy-not resected. PLAN: We did an EGD and colonoscopy yesterday. Colonoscopy findings were polyps in the entire colon, primarily the right colon. Polypectomy was not attempted given the GI bleed and the patient being hypotensive during the procedure. EGD findings: The esophagus was normal. There was a small nonbleeding angiectasis found in the gastric body. It was cauterized and 3 small nonbleeding angiectases were found in the second part of the duodenum. It was cauterized. No biopsies were taken. We will continue patient with the Protonix p.o. 40 mg twice a day. For his anemia, he is on a multivitamin and ferrous sulfate twice a day. The patient is receiving Solu-Medrol, prednisone 40 mg twice a day, and he is on antibiotic Rocephin daily. We will continue to monitor the patient's CBC, BMP. His H and H today was 7.8 and 26.9. The patient has been asked to follow up Dr. Bal as an outpatient once he is discharged in 2 weeks. This plan was discussed with Dr. Cevallos. Please call us for any further questions or concerns. Dictated by MARIFER Patel for Fermin Cevallos MD cc: Fermin Cevallos MD I have seen and examined the patient myself. I agree with the above plan of care. I have discussed the above with the patient and all questions were answered. Please call us with any further questions or concerns. MTDDrew
[2019-01-24] MEDS ORDERED: LASIX PO SCH (09:00)
--- NOTE | 2019-01-24 13:32 | DISCHARGE SUMMARY ---
ADMISSION DATE: 01/20/2019 DISCHARGE DATE: 01/23/2019 DISPOSITION: Home. FOLLOW-UP: 1. Nan Casillas. 2. Dr. Bhatt. 3. Dr. Bal. 4. Dr. Rogers. IMAGING DONE DURING THIS ADMISSION: EGD showed normal esophagus mucosa, nonbleeding ectasia in the gastric body. Cautery was applied. There were also 3 non-bleeding ectasias in the 3rd part of the duodenum. Cautery was applied to the sites. A colonoscopy was done, shows an innumerable number of polyps throughout the entire colon. No signs of active bleeding. I suspect the anemia is likely from the AVMs found in the upper GI tract. ADMISSION DIAGNOSES: 1. GI bleed. 2. History of myocardial infarction with cardiac stents in June. 3. History of atrial fibrillation. 4. COPD. DIAGNOSES AT THE TIME OF DISCHARGE: 1. Acute hypoxemic respiratory failure on presentation, improved. 2. Fluid overload secondary to congestive heart failure with preserved ejection fraction. 3. Severe microcytic anemia of iron deficiency. 4. Chronic GI bleed presumably due to AVMs. The patient is status post EGD with cautery application. 5. History of ischemic heart disease status post stents. 6. Acute bronchospasm secondary to COPD exacerbation and pulmonary edema from congestive heart failure. 7. Tobacco use and abuse prior to hospitalization. 8. Undiagnosed COPD. CT scan makes mention of emphysematous changes in the upper lobes. The patient has history of more than 50 pack-year history. He has been advised to follow up with Pulmonary Medicine for PFTs and official diagnosis of COPD and outpatient management. 9. CKD stage 3B. DISCHARGE MEDICATIONS: 1. Glipizide 10 mg p.o. at bedtime. 2. Atorvastatin 80 mg p.o. at bedtime. 3. Clopidogrel 75 mg p.o. at bedtime. 4. Gabapentin 100 mg b.i.d. 5. Eliquis 5 mg b.i.d. 6. Levemir 30 units subcutaneously q.a.m. 7. Levofloxacin 500 p.o. daily. 8. [place] 5 mg p.o. q. 6 h. p.r.n. 9. Prednisone 20 mg p.o. daily. 10. Pantoprazole 40 mg b.i.d. 11. Spiriva inhaler 1 puff daily. 12. Ventolin 2 puffs p.r.n. every 6 hours as needed. 13. Iron sulfate 325 b.i.d. 14. Maxine-Colace 1 tablet b.i.d. 15. Furosemide 20 mg b.i.d. PRESENTING COMPLAINT: Shortness of breath. HISTORY OF PRESENTING COMPLAINT: Mr. Garcia is a 68-year-old male who is known to have ischemic heart disease with stents placed in June of this year. He also has hypertension, dyslipidemia, undiagnosed COPD, and chronic atrial fibrillation. The patient comes in because of shortness of breath, was evaluated in the ER. On admission, he was saturating in the 94, 93, 92s. He was also found to have increased pulmonary edema on chest x-ray, impression read congestive heart failure. He was admitted to [facility] for medical care. HOSPITAL COURSE: Mr. Garcia was admitted to [facility], was started on IV diuretic therapy. He was also found to be remarkably anemic with a hemoglobin of 6.4. He was transfused 3 PRBC. Hemoglobin and hematocrit improved to about 7.8. Mr. Garcia is on both Eliquis and Plavix due to cardiac conditions and we thought that the bleeding was mucosa induced due to the blood thinners. Mr. Garcia was also found to have some wheezing, which we think it is a combination of pulmonary edema and possibly a COPD. He has a history of about 50 pack-year smoking history and he also has a CT scan, which makes mention of emphysematous changes in the upper lobes. Mr. Garcia is advised to follow up with Pulmonary Medicine for official diagnosis, PFTs, and outpatient management. He has been advised on multiple encounters about smoking cessation. Mr. Garcia underwent EGD and colonoscopy for the severe microcytic anemia. It was found on the EGD, AVMs in the stomach and in the duodenum, which was cauterized. The colonoscopy did find multiple polyps. GI wants to follow that up on outpatient basis. Mr. Garcia today refers to be feeling a whole lot better. His chest x-ray, however, did show a little bit more congestion. Pro B also was slightly more elevated, so he was given 80 mg of Lasix. By the time of my encounter, he refers to be doing a whole lot better and he requests if he can be discharged. Per cardiology report, he can be discharged today and follow up with them and they are also okay with him resuming his Plavix and Eliquis. Mr. Garcia has been evaluated for home 2 oxygen and he qualifies. His O2 saturation dropped down to 84 on room air. I think most of it is being driven by his COPD. He is going to therefore be discharged on home 2 oxygen and on his medication mentioned above. As I said, we stressed the need for tobacco cessation with him. All the discharge instructions have been discussed with him and he voiced understanding. His son was at the bedside at the time of the encounter. Time spent for discharge is 40 minutes. cc: MD Yani Aquino CRNP Ashish K. Basu, MD Dr. Kelso James E. Boyle, MD [facility] MEDICAL CENTERDrew
== END 2019-01-23 15:20 | disposition home or self-care (01) | DRG 377 ==
LOC: SUPCPDRO → ED 10:19 → 2N 14:12
PROVIDERS: ATTEND Internal Medicine
PROC: EN.HEAT (2019-01-22 08:57)